=== PATIENT | male | born 1960 | race Caucasian/White ===

== ENCOUNTER 2016-04-28 08:32 | Emergency (ER) | payer SELFPAY ==
[~2016-04-28] VITALS: Ht 180.3 cm; Wt 80.0 kg
[~2016-04-28 08:32] MED LIST: HYDR-4346 PO; IBUP600T26 PO
[2016-04-28 08:33] VITALS: BP 174/95; PULSE 85; RESP 18; TEMP 97.8; O2SAT 100
--- NOTE | 2016-04-28 09:16 | PD ---
HPI Chief Complaint: Pain: Acute or Chronic Time Seen by Provider: 09:16 Travel History International Travel<30 days: No Contact w/Intl Traveler<30days: No Traveled to known affect area: No History of Present Illness HPI 55-year-old male presents to emergency Department with complaint of left shoulder pain for about the last 2 months. He has followed up with primary care provider and was told he had a pinched nerve. He has been taking Lortab 7.5 mg with no relief of symptoms. The pain radiates from his left upper shoulder to his fingertips. He is also complaining of decreased range of motion of the left shoulder secondary to pain. Says he does a lot of heavy lifting at work and may have strained his shoulder some point, but denies new or recent injury. Denies paresthesias, loss of sensation to the affected extremity. Denies fever, chills, nausea, vomiting. Pain is aggravated with movement and palpation. No known allergies. Has an established primary care provider. No other modifying factors or associated signs and symptoms. PFSH Past Medical History Anxiety: Yes Diminished Hearing: No Inguinal Hernia: Yes (3 ) Social History Alcohol Use: No Tobacco Use: No Substance Use: No Allergies-Medications (Allergen,Severity, Reaction): Coded Allergies: No Known Allergies (Unverified , 06/17/15) Reported Meds & Prescriptions Reported Meds & Active Scripts Active Flexeril (Cyclobenzaprine HCl) 10 Mg Tab 10 Mg PO TID PRN Ibuprofen 800 Mg Tab 800 Mg PO Q6HR PRN Deltasone (Prednisone) 20 Mg Tab 40 Mg PO DAILY 4 Days start 04/29/2016 Reported Ibuprofen 600 Mg Tab 600 Mg PO Q8H Lorcet Plus 7.5 mg/325 mg 1 Tab 1 Tab PO Q4H PRN Review of Systems Except as stated in HPI: all other systems reviewed are Neg Physical Exam Narrative GENERAL: Well-nourished, well-developed male patient, in no acute distress SKIN: Warm and dry. HEAD: Atraumatic. Normocephalic. EYES: Pupils equal and round. No scleral icterus. No injection or drainage. ENT: Mucosa pink and moist. Airway patent. NECK: Supple. Trachea midline. CARDIOVASCULAR: Regular rate. RESPIRATORY: No accessory muscle use. MUSCULOSKELETAL: Left shoulder with decreased range of motion; abduction to approximately 90; shoulders equal; without obvious deformity; joint stable; with tenderness on palpation to the anterior shoulder and to the upper shoulder area over the trapezius muscle; shoulder without erythema, edema, ecchymosis; full manager purchasing strength. Left upper approximately supple and non-tense with 2+ radial pulse and sensory intact without erythema or edema. No obvious deformities. No clubbing. No cyanosis. No edema. NEUROLOGICAL: Awake and alert. Oriented 3. No obvious cranial nerve deficits. Motor grossly within normal limits. Normal speech. PSYCHIATRIC: Appropriate mood and affect; insight and judgment normal. Data Data Last Documented VS Vital Signs Date Time Temp Pulse Resp B/P Pulse Ox O2 Delivery O2 Flow Rate FiO2 04/28/16 08:33 97.8 85 18 174/95 100 Room Air Orders Ketorolac Inj (Toradol Inj) (04/28/16 09:30) Orphenadrine Inj (Norflex Inj) (04/28/16 09:30) Prednisone (Deltasone) (04/28/16 09:30) Sling Cradle Arm (04/28/16 ) MDM Medical Decision Making Medical Screen Exam Complete: Yes Emergency Medical Condition: Yes Medical Record Reviewed: Yes Differential Diagnosis Cervical radiculopathy, shoulder pain, rotator cuff tear, shoulder sprain Narrative Course 55-year-old male with left shoulder pain 2 months. History of cervical radiculopathy. I do not suspect fracture, dislocation, or joint separation of the left shoulder and feel that imaging is not necessary at this time. Toradol and Norflex administered in the ER. Arm sling provided for support; instructed patient to limit arm sling to prevent frozen shoulder. Instructed patient to follow up with orthopedic. Flexeril, ibuprofen, Deltasone prescribed for home. Patient verbalizes understanding and agreement with treatment plan. Patient is medically cleared and stable for discharge. Discussed reasons to return to the emergency department. Instructed patient to follow up with primary care provider. Patient agrees with treatment plan. The patients vital signs are stable and the patient is stable for outpatient follow-up and treatment. Patient discharged home, stable and in no acute distress. Diagnosis Primary Impression: Shoulder pain, left Qualified Code: M25.512 - Left shoulder pain, unspecified chronicity Additional Impression: Cervical radiculopathy Referrals: Orthopaedic Surgeon Primary Care Physician Patient Instructions: Cervical Radiculopathy (ED), General Instructions, Shoulder Pain (ED) Departure Forms: Tests/Procedures, Work Release Enter return to work date: Apr 30, 2016 Additional Instructions: Tylenol or ibuprofen as needed and as directed to reduce pain and inflammation Rest, ice, and compress extremity to decrease pain and inflammation Arm sling for support; limit use of arm sling to avoid frozen shoulder Avoid aggravating activity; increase activity as tolerated Follow-up with primary care provider Follow-up with orthopedics Return to the emergency department immediately with worsening symptoms Med/Other Pt SpecificInfo: Prescription(s) given Scripts Cyclobenzaprine (Flexeril)10 Mg Tab10 Mg PO TID PRN (MUSCLE SPASM) #30 TAB Ref 0 Prov:Mavis Menchaca 04/28/16 Ibuprofen 800 Mg Onn521 Mg PO Q6HR PRN (PAIN) #30 TAB Ref 0 Prov:Mavis Menchaca 04/28/16 Prednisone (Deltasone)20 Mg Tab40 Mg PO DAILY 4 Days Ref 0 start 04/29/2016 Prov:Mavis Menchaca 04/28/16 Disposition: 01 DISCHARGE HOME Condition: Stable Mavis Menchaca Apr 28, 2016 09:16
[2016-04-28] MEDS ORDERED: IBUP800T23 PO (09:20)
[2016-04-28] MEDS ORDERED: CYCL1TAB29 PO (09:20)
[2016-04-28] MEDS ORDERED: PRED-503 PO (09:20)
[2016-04-28] MEDS ORDERED: predniSONE 20 MG TAB PO ONE (09:30)
[2016-04-28] MEDS ORDERED: ORPHENADRINE INJ 60 MG/2 ML AMP IM ONE (09:30)
[2016-04-28] MEDS ORDERED: KETOROLAC TROMETHAMINE 60 MG/2 ML (IM) VIAL IM ONE (09:30)
== END 2016-04-28 10:04 | disposition home or self-care (01) ==
LOC: NEPB 08:32
DX: M25.512 Pain in left shoulder (principal); M54.12 Radiculopathy, cervical region
CPT/HCPCS: 96372; 99283; J1885; J2360; J7512